=== PATIENT | male | born 1955 | race Caucasian/White ===

== ENCOUNTER → 2016-07-11 | Outpatient (CLI) | payer OTHER ==
--- NOTE | 2016-07-11 16:12 | US ---
Right Lower Extremity Ultrasound and Venous Duplex Doppler Study History: Pain. Comparison: None available. Technique: High frequency transducer was used for imaging and Doppler study of the veins of the lowe r extremity. Pulsed Doppler and color Doppler were utilized, along with various maneuvers to assess flow in the veins. Findings: The deep veins of the lower extremity are normally compressible between the groin and the upper calf and have normal Doppler waveforms within them. No venous thrombosis is identified. Impression: No evidence of deep vein thrombosis. Findings discussed with Antonio Theodore today at 1610 hours.
== END ==
LOC: FIMAGING 14:29
PROVIDERS: ATTEND Family Medicine
DX: M79.604 Pain in right leg (principal)

== ENCOUNTER → 2016-09-04 | Outpatient (CLI) | payer OTHER | LOC: FIMAGING 09:53 | PROVIDERS: ATTEND Physician Assistant | DX: M48.06 Spinal stenosis, lumbar region (principal) ==

== ENCOUNTER 2017-03-11 05:53 | Inpatient (IN) | payer OTHER ==
[2017-03-11] MEDS ORDERED: LIDOCAINE 1% 2 ML INJ ID PRN (05:59)
[2017-03-11] MEDS ORDERED: LR 1,000 ML IV ONE (05:59)
[2017-03-11] MEDS ORDERED: MIDAZOLAM 2 MG/2 ML VIAL IVP ONE (06:11)
--- NOTE | 2017-03-11 06:11 | PDANEPAE ---
ANE History of Present Illness 61 yo male for L2-5 laminectomies. ANE Past Medical History - Cardiovascular History Hx Hypertension: Yes Hx Arrhythmias: No Hx Chest Pain: No Hx Coronary Artery / Peripheral Vascular Disease: No Hx CHF / Valvular Disease: No Hx Palpitations: No - Pulmonary History Hx COPD: No Hx Asthma/Reactive Airway Disease: No Hx Recent Upper Respiratory Infection: No Hx Oxygen in Use at Home: No Hx Sleep Apnea: No Sleep Apnea Screening Result - Last Documented: Positive - Neurologic History Hx Cerebrovascular Accident: No Hx Seizures: No Hx Dementia: No Neurologic History Comment: legs go numb after walking short distances - Endocrine History Hx Diabetes: No Hypothyroid: Yes Obesity: no Endocrine History Comment: hypothyroid - Renal History Hx Renal Disorders: No - Liver History Hx Hepatic Disorders: No - Neurological & Psychiatric Hx Hx Neurological and Psychiatric Disorders: No Neurological / Psychiatric History Comment: insomnia on medication - Cancer History Hx Cancer: No - Congenital Disorder History Hx Congenital Disorders: No - GI History Hx Gastrointestinal Disorders: Yes Gastrointestinal History Comment: colon resection, constipation. gerd - Other Health History Other Health History: dry skin. wears glasses - Chronic Pain History Chronic Pain: Yes (01/22, chronic narcotics for pain management) - Surgical History Prior Surgeries: 2010 C 5,6,7 fused. 2013 repaired hernia. 2014 left distal bisep tendon ANE Review of Systems Review of Systems: No URI/fever x2 weeks. - Exercise capacity METS (RN): 3 METS - Systems Cardiac: Reports: no symptoms Respiratory: Reports: no symptoms Neurological: Reports: numbness (B legs after walking short distances. ) ANE Patient History - Allergies Allergies/Adverse Reactions: gabapentin [From Neurontin] Allergy (Verified 02/09/17 12:22) "makes me forgetful" tizanidine [From Zanaflex] Allergy (Verified 03/11/17 07:05) - Home Medications Home medications: home medication list seen and reviewed Home Medications: Allopurinol [Allopurinol 300 MG (RX)] 300 mg PO DAILY 02/11/17 [Last Taken 03/11 02:30] Aspirin [Aspirin 81mg (*)] 2 - 4 tab PO DAILY 02/11/17 [Last Taken 03/03/17] Bisacodyl [Bisacodyl (*)] 5 - 10 mg PO BID PRN 02/11/17 [Last Taken 03/10/17 21: 00] Cetirizine [ZyrTEC 10 mg (*)] 10 mg PO DAILY 02/11/17 [Last Taken 03/11/17 02:30 ] Cyclobenzaprine [Flexeril 10 MG (*)] 10 mg PO TID PRN 02/11/17 [Last Taken 03/11 02:30] Docusate Sodium 250 mg PO BID PRN 02/11/17 [Last Taken 03/10/17 18:00] Famotidine [Pepcid 20 MG (*)] 20 mg PO BID 02/11/17 [Last Taken 03/11/17 02:30] Herbals/Supplements -Info Only 1 ea PO DAILY 02/11/17 [Last Taken Unknown] LISINOPRIL/HYDROCHLOROTHIAZIDE [PRINZIDE 20-25 MG TABLET] 1 each PO BID [Last Taken 03/11/17 02:30] Levothyroxine [Synthroid 112 mcg (*)] 112 mcg PO DAILY06 02/11/17 [Last Taken 02:30] Multivitamins [Multivitamin (*)] 1 each PO DAILY 02/11/17 [Last Taken 03/04/17] Naproxen Sodium [Aleve 220 MG (*)] 1 - 2 each PO TID PRN 02/11/17 [Last Taken ] Nicotine [Nicoderm Cq 21 mg (*)] 21 mg TD DAILY 02/11/17 [Last Taken 03/11/17 05 :00] [place]-3 Fatty Acids [Fish Oil 1000 mg (*)] 2,000 mg PO DAILY 02/11/17 [Last Taken 03/04/17] Simethicone [Gas-X] 125 mg PO BID PRN 02/11/17 [Last Taken 03/11/17 02:30] Suvorexant [Belsomra] 20 mg PO HS PRN 02/11/17 [Last Taken 03/09/17] Tamsulosin HCl [Flomax 0.4 MG (*)] 0.8 mg PO DAILY 02/11/17 [Last Taken 22:30] oxyCODONE IR [Oxycodone Ir (*)] 15 mg PO Q4HRS PRN 02/11/17 [Last Taken 09/27/ 17 03:30] - NPO status NPO Status: no food or drink >8 hours - Anes Hx Anes Hx: no prior problems - Smoking Hx Smoking Status: Former smoker - Alcohol Use Alcohol Use: None - Family Anes Hx Family Anes Hx: neg - N/A Family Hx Anesthesia Complications: none ANE Labs/Vital Signs - Vital Signs Vital Signs: reviewed preoperatively; see RN documention for details Height: 175.26 cm Weight: 80.286 kg ANE Physical Exam - Airway Neck exam: decreased ROM (previous cervical fusion) Mallampati Score: Class 3 Mouth exam: normal dental/mouth exam - Pulmonary Pulmonary: other (coarse) - Cardiovascular Cardiovascular: tachycardia - ASA Status ASA Status: III ANE Anesthesia Plan Anesthesia Plan: general endotracheal anesthesia Lines/Monitors: arterial line
[2017-03-11] MEDS ORDERED: DEXMEDETOMIDINE HCL 400 MCG in NS 100 ML IV SCH (06:30)
[2017-03-11] MEDS ORDERED: ceFAZolin 2 GM/DEXTROSE 100 ML IV ONE (06:55)
[2017-03-11] MEDS ORDERED: CHLORHEXIDINE GLUC HIBICLENS 118 ML BTL TP ONE (06:57)
[2017-03-11] MEDS ORDERED: THROMBIN (BOVINE) 5,000 UNIT VIAL TP ONE (06:58)
[2017-03-11] MEDS ORDERED: BUPIVACAINE 0.25% 30 ML SDV ONE (06:58)
[2017-03-11] MEDS ORDERED: BACITRACIN 50,000 UNITS/10 ML SYR IRR ONE (06:59)
[2017-03-11] MEDS ORDERED: AVITENE POWDER 1 GM JAR TP ONE (06:59)
[2017-03-11] MEDS ORDERED: DIAZEPAM 10 MG/2 ML SYR ONE (07:14)
[2017-03-11] MEDS ORDERED: KETAMINE 100 MG/10 ML SYR ONE (07:14)
[2017-03-11] MEDS ORDERED: fentaNYL 100 MCG/2 ML INJ ONE (07:14)
[2017-03-11] MEDS ORDERED: PROPOFOL/EMULSION 500 MG/50 ML BOTTLE IV ONE ×2 (07:15→08:33)
[2017-03-11] MEDS ORDERED: LIDOCAINE 2% 5 ML SDV ONE (07:15)
[2017-03-11] MEDS ORDERED: DEXAMETHASONE 4 MG/ML VIAL ONE ×2 (07:15)
[2017-03-11] MEDS ORDERED: ROCURONIUM 50 MG/5 ML VIAL ONE (07:15)
[2017-03-11] MEDS ORDERED: PHENYLEPHRINE 10 MG/ML SDV ONE (07:38)
[2017-03-11] MEDS ORDERED: VASOPRESSIN 20 UNIT/ML VIAL ONE (08:25)
[2017-03-11] MEDS ORDERED: SURGIFLO MATRIX KIT WITH THROMBIN TP ONE (08:31)
[2017-03-11] MEDS ORDERED: epHEDrine SULFATE 10 MG/ML SYR ONE ×5 (08:40→09:34)
[2017-03-11] MEDS ORDERED: ALBUMIN 5% 250 ML BOTTLE IV ONE ×2 (08:59→09:25)
[2017-03-11 09:04] LABS: BASE EXCESS -5.2 mEq/L (-2.5-2.5); BICARBONATE 19 mEq/L (22-26); HEMOGLOBIN ABG 12.4 gm/dL (14.5-17.3); IONIZED CALCIUM 1.14 MMOL/L (1.12-1.30); MEASURED OXYGEN SATURATION 99 % (92-95); PCO2 34 mmHg (34-38); PO2 170 mmHg (65-75); SODIUM ABG 133 mEq/L (137-146); TCO2 20 mEq/L (23-27)
[2017-03-11] MEDS ORDERED: KETOROLAC 30 MG/1 ML SDV ONE (09:43)
[2017-03-11] MEDS ORDERED: ONDANSETRON DISINTEGRATING 4 MG TAB PO PRN (10:11)
[2017-03-11] MEDS ORDERED: ONDANSETRON 4 MG/2 ML VIAL IVP PRN ×2 (10:11→10:17)
[2017-03-11] MEDS ORDERED: POLYETHYLENE GLYCOL 3350 17 GM PKT PO PRN (10:11)
[2017-03-11] MEDS ORDERED: diphenhydrAMINE 25 MG CAP PO PRN (10:11)
[2017-03-11] MEDS ORDERED: MAGNESIUM HYDROXIDE 30 ML UDCUP PO PRN (10:11)
[2017-03-11] MEDS ORDERED: LACTULOSE 20 GM/30 ML UDCUP PO PRN (10:11)
[2017-03-11] MEDS ORDERED: BISACODYL 10 MG SUPP PR PRN (10:11)
[2017-03-11] MEDS ORDERED: NS 1,000 ML IV SCH (10:15)
[2017-03-11] MEDS ORDERED: Suvorexant [Belsomra] 20 MG PO PRN (10:17)
[2017-03-11] MEDS ORDERED: NALOXONE HCL 0.4 MG/ML INJ IVP PRN (10:17)
[2017-03-11] MEDS ORDERED: D5W LR 500 ML IV PRN (10:17)
[2017-03-11] MEDS ORDERED: OXYCODONE/APAP 5/325 TAB PO PRN (10:17)
[2017-03-11] MEDS ORDERED: NON-FORMULARY NEW DRUG (Simethicone [Gas-X] 125 MG) PO PRN (10:17)
[2017-03-11] MEDS ORDERED: ACETAMINOPHEN 500 MG TAB PO PRN (10:17)
[2017-03-11] MEDS ORDERED: PROMETHAZINE HCL 25 MG/ML INJ IVP PRN (10:17)
[2017-03-11] MEDS ORDERED: ALBUTEROL 3 ML DEYVIAL IH PRN (10:17)
[2017-03-11] MEDS ORDERED: NAPROXEN SODIUM 220 MG TAB PO PRN (10:17)
--- NOTE | 2017-03-11 10:22 | POSTANESTH ---
Post Anesthetic Evaluation Cardiovascular Status: Similar to Pre-Op Cond (BP now stable, similar to pre-op reading. Off of all pressors.) Respiratory Status: Normal, Stable Level of Consciousness/Mental Status: Can Participate in Eval, Mildly Sleepy, Arousable Pain Control: Adequate, Prn Tx Ordered Nausea/Vomiting Control: Adequate, Prn Tx Ordered Complications Possibly Related to Anesthesia: None Noted
--- NOTE | 2017-03-11 10:23 | PDHPUP ---
History & Physical Update H&P update statement: This history and physical update is based on an assessment of the patient which was completed after admission or registration (within 24 hours), but prior to the surgery/procedure. H&P update: H&P reviewed & patient examined, no change in patient's condition since H&P completed
--- NOTE | 2017-03-11 10:33 | NEUSURGPN ---
Assessment/Plan: S: Patient in PACU. Stable with expected postop incisional pain. O: NAD, VSS- Hypotensive 82/49 but has been baseline for patient since preop PERRL, EOMI CN II-XII grossly intact JOSHI X4 BLE 5/5= Sensation intact to lt touch Incision c/d/i- dermabond DENISE X 1 to full suction A: 61 yo male sp L2-L5 laminectomy for lumbar stenosis and neurogenic claudication -Admit to med/sug -Patient had issues with hypotension intraoperatively and postop- hold antihypertensive medications if low. Normal range has been 80s/50s. Most likely hypovolemia as oxygenation and heart rhythm stable -Advance diet as tolerated -DENISE X 1 -LSO brace to be ordered per Dr. Toney even though no hardware was placed as bone quality poor -Patient chronic opioid user- DIRECTOR GEOPHYSICAL LABORATORY ordered if needed and MS Contin added -PT/OT -DVT prophy: TEDs, SCDs, Lvoenox POD #1 -Patient discussed with Dr. Toney - Physician Discussed Patient with Dr.: Toney Neurosurgery Physical Exam - Vitals, I&O, Labs I and O 03/10/17 03/11/17 03/12/17 05:59 05:59 05:59 Weight 80.286 kg Vital Signs Temp Pulse Resp BP Pulse Ox 36 C 114 H 16 90/62 L 93 03/11/17 10:16 03/11/17 06:35 03/11/17 06:35 03/11/17 06:35 03/11/17 06:35 ICD10 Worksheet Patient Problems: Problems Problem Status Onset Lumbar stenosis Acute - ICD10 Problem Qualifiers (1) Lumbar stenosis
[2017-03-11] MEDS ORDERED: SIMETHICONE 80 MG TAB CHEW PO PRN (10:38)
[2017-03-11] MEDS ORDERED: DIAZEPAM 10 MG/2 ML SYR IVP PRN (10:39)
--- NOTE | 2017-03-11 10:48 | GOP ---
[f rep st] OPERATIVE REPORT DATE OF OPERATION: 03/11/2017 SURGEON: Lisandro Toney MD JUMPBASTING FACING BASTER: Malu Dent PA-C PREOPERATIVE DIAGNOSIS: Severe lumbar stenosis with neurogenic claudication. POSTOPERATIVE DIAGNOSIS: Severe lumbar stenosis with neurogenic claudication. PROCEDURE PERFORMED: 1. Complete laminectomies L2, L3, L4, and L5. 2. Medial facetectomies L2, L3, L4, and L5, for decompression of lateral recess and cauda equina. 3. Use of intraoperative neurophysiologic monitoring, including somatosensory-evoked potentials and free run EMG. FINDINGS: Successful lumbar decompression. SPECIMENS: None. ESTIMATED BLOOD LOSS: 100 cc. DESCRIPTION OF PROCEDURE: After informed consent was obtained from the patient, the patient was brou ght to the operating room, and a formal time-out was performed, identifying the patient by name, [facility] record number, and date of . Preoperative antibiotics were given, endotracheal tube was óscar harley, and general endotracheal anesthesia was smoothly induced. The patient was then turned into the prone position on the Chicho frame with the lumbar spine placed in flexion. The lumbar region was th en prepped and draped in the normal sterile fashion. The levels of the incision were localized using a lateral radiograph and a spinal needle. 10 cc of 0.25% Marcaine with epinephrine was infiltrated into the skin for hemostasis. The skin incision was made using a 10 blade, and the subcutaneous tiss ues were dissected using monopolar electrocautery. The fascia was opened in the midline, and the par aspinous muscles were taken down from the lateral surfaces of the spinous processes at L2, L3, L4, an d L5. A marker was placed under the upper-most lamina and lower-most lamina, and these were identifi ed as L2 and L4. The L5 lamina was then exposed just beneath the L4. Exposure was obtained out to t he medial facets. Once full exposure was obtained from L2 to L5, the spinous processes were removed using Leksell rongeurs. At L4 on the left, a pars defect was visualized, which had not been seen on the preoperative imaging, but this was clearly degenerative in nature. Careful inspection did not re veal any sign of motion at that level of the inferior facet. At this point, the high-speed drill was used to drill troughs laterally, leaving slightly more than half the pars intact at each level. The lamina was removed medially exposing the yellow ligament and epidural fat. At this point, Kerrison punches were used to remove the remainder of the lamina at L2, L3, L4, and L5, and then underbite the lateral recess at the facet joint. The entire yellow ligament was removed, first starting on the ri ght side and then moving toward the left side. There was extensive facet overgrowth, which was causi ng a large amount of lateral recess stenosis at each level, and these were carefully removed using Ke rrison punches. A dissector was then used to carefully palpate out into each foramen at L2-3, L3-4, L4-5, and L5-S1, and foraminotomies were performed using Kerrison punches at each level. At this poi nt, the bleeding in the lateral gutters was controlled using Surgicel and Gelfoam. A final look was taken in the lateral recess to be sure that the decompression was complete. A final lateral radiogra ph confirmed that we had decompressed from above the L2-3 disk space to below the L5-S1 disk space. At this point, the wound was copiously irrigated using bacitracin irrigation. Where the pars defect was visualized, the medial facet was drilled down to expose bleeding bone, and some of the morselized autograft, which was harvested from the lamina and spinous processes, was placed over the facet join ts at L3, L4, and L5, performing a non-instrumented fusion in this area, given that the unilateral le ft-sided pars defect was unknown prior to the surgery. At this point, a DENISE drain was placed in the s ubfascial space. The fascia was closed in the midline using interrupted 0 Vicryl's. The superficial fascia was closed using interrupted 0 Vicryl's, the deep dermis was closed using interrupted 2-0 Albert ryl's, and the skin was closed using Dermabond. Sterile dressings were placed. The patient was awak ened in the operating room and was transferred to the PACU in stable condition. There were no operat delroy complications. I was scrubbed and present for the entire procedure. BRIEF CLINICAL HISTORY: The patient is a 61-year-old man who presents with severe neurogenic claudic ation. MRI reveals severe stenosis due to facet hypertrophy and ligamentum flavum hypertrophy at L2- 3, L3-4, L4-5, and L5-S1. He has tried numerous conservative options but is still having significant pain and can barely walk. He presents today for elective surgery. FLUIDS AND URINE OUTPUT: Per the anesthesia record. COUNTS: All sponge and needle counts were correct at the end of the case. DRAIN: A subfascial DENISE. /[id number]/MODL
[2017-03-11 10:52] LABS: BASE EXCESS -6.1 mEq/L (-2.5-2.5); BICARBONATE 19 mEq/L (22-26); MEASURED OXYGEN SATURATION 99 % (92-95); TCO2 20 mEq/L (23-27)
[2017-03-11 10:57] LABS: PCO2 35 mmHg (34-38); PO2 126 mmHg (65-75)
[2017-03-11] MEDS ORDERED: oxyCODONE IR 5 MG TAB ONE (11:26)
[2017-03-11] MEDS ORDERED: oxyCODONE IR 5 MG TAB PO ONE (11:30)
[2017-03-11] MEDS: ACETAMINOPHEN 500 MG TAB PO SCH ×2 (13:11→21:10)
[2017-03-11] MEDS: ceFAZolin 2 GM/DEXTROSE 100 ML IV SCH ×2 (14:26→23:10)
[2017-03-11] MEDS: DIAZEPAM 5 MG TAB PO PRN ×2 (14:26→23:14)
[2017-03-11] MEDS: oxyCODONE IR 15 MG TAB PO PRN ×2 (17:52→23:07)
[2017-03-11] MEDS ORDERED: NON-FORMULARY NEW DRUG (Lisinopril/Hydrochlorothiazide [Prinzide 20-25 Mg Tablet] 1 EACH) PO SCH (21:00)
[2017-03-11] MEDS: morphINE SR 15 MG TAB PO SCH (21:10)
[2017-03-11] MEDS: LISINOPRIL/HCTZ 10/12.5 MG 1 EA TAB PO SCH (21:11)
[2017-03-11] MEDS: FAMOTIDINE 20 MG TAB PO SCH (21:11)
[2017-03-11] MEDS: SENNOSIDES/DOCUSATE SODIUM TAB PO SCH (21:11)
[2017-03-12] MEDS: oxyCODONE IR 15 MG TAB PO PRN ×3 (03:51→15:20)
[2017-03-12] MEDS: ACETAMINOPHEN 500 MG TAB PO SCH ×3 (05:16→20:57)
[2017-03-12] MEDS: DIAZEPAM 5 MG TAB PO PRN ×3 (05:17→17:54)
[2017-03-12] MEDS: LEVOTHYROXINE 112 MCG TAB PO SCH (05:17)
--- NOTE | 2017-03-12 08:36 | NEUSURGPN ---
Assessment/Plan: A: 61 yo male sp L2-L5 laminectomy for lumbar stenosis and neurogenic claudication -Admit to med/sug -Advance diet as tolerated -Continue DENISE X 1 -LSO brace when OOB per Dr. Toney even though no hardware was placed as bone quality poor -Patient chronic opioid user- SEARCH MARKETING SPECIALIST ordered if needed and MS Contin added. Will transition to PO meds today. -PT/OT -DVT prophy: TEDs, SCDs, Lovenox -Patient discussed with Dr. Toney Subjective: Anterior thigh tingling. Leg cramps prior to surgery have not returned since surgery. Objective: NAD A&Ox3 MAEx4 5/5 and equal in BUE and BLE. Incisional dressing c/d/i. DENISE drain serosanguineous - Physician Patient Seen by : Dawna Neurosurgery Physical Exam - Vitals, I&O, Labs I and O 03/11/17 03/12/17 03/13/17 05:59 05:59 05:59 Intake Total 3471 Output Total 670 Balance 2801 Weight 80.286 kg Intake: Oral (ml) 500 IV Intake (ml) 2000 IV Infused (ml) 971 Ns 1,000 ml @ 100 mls/hr 756 IV CONT MAGUI Rx#: [id number] ceFAZolin 2 GM/DEXTROSE 215 100 ml @ 200 mls/hr IV Q8H MAGUI Rx#:[id number] Output: Urine (ml) 300 Urinal 300 Estimated Blood Loss (ml) 100 DENISE Drain Output (ml) 270 #1 Left Posterior Back 270 Dejuan Rodriguez Other: Number of Voids Toilet 1 Bladder Scan Volume (ml) 136 Vital Signs Temp Pulse Resp BP Pulse Ox 37.1 C 99 16 110/70 93 03/12/17 07:54 03/12/17 07:54 03/12/17 07:54 03/12/17 07:54 03/12/17 07:54 ICD10 Worksheet Patient Problems: Problems Problem Status Onset Lumbar stenosis Acute
[2017-03-12] MEDS: FAMOTIDINE 20 MG TAB PO SCH ×2 (08:51→20:57)
[2017-03-12] MEDS: ALLOPURINOL 300 MG TAB PO SCH (08:51)
[2017-03-12] MEDS: CETIRIZINE 10 MG TAB PO SCH (08:51)
[2017-03-12] MEDS: SENNOSIDES/DOCUSATE SODIUM TAB PO SCH ×2 (08:52→20:59)
[2017-03-12] MEDS: TAMSULOSIN HCL 0.4 MG CAP PO SCH (08:52)
[2017-03-12] MEDS: LISINOPRIL/HCTZ 10/12.5 MG 1 EA TAB PO SCH ×2 (08:53→20:57)
[2017-03-12] MEDS: NICOTINE 21 MG/24 HR PATCH TD SCH (08:54)
[2017-03-12] MEDS: ENOXAPARIN 40 MG/0.4 ML SYR SC SCH (08:55)
[2017-03-12] MEDS: morphINE SR 15 MG TAB PO SCH ×2 (08:58→20:56)
[2017-03-12] MEDS: oxyCODONE IR 5 MG TAB PO PRN ×2 (12:59→20:54)
--- NOTE | 2017-03-12 15:17 | ASMTCMCOM ---
CM Note CM Note Notes: Ot clears pt for home, PT rec HHC and/or 24/hr sup. Pt will have supervision of gf, he wants to speak w gf before deciding if he wants HHC. HHC choice list left w pt, CM to follow. Date Signed: 03/12/2017 03:16 PM Electronically Signed By:TAYLOR Laird
[2017-03-12] MEDS: METHOCARBAMOL 750 MG TAB PO PRN (15:20)
[2017-03-12] MEDS: HYDROmorphONE/DILAUDID 1 MG/ML INJ IVP PRN ×2 (15:23→17:52)
[2017-03-13] MEDS: HYDROmorphONE/DILAUDID 1 MG/ML INJ IVP PRN ×3 (00:09→05:02)
[2017-03-13] MEDS: DIAZEPAM 5 MG TAB PO PRN ×3 (00:09→18:38)
[2017-03-13] MEDS: oxyCODONE IR 5 MG TAB PO PRN ×3 (00:48→15:36)
[2017-03-13] MEDS: METHOCARBAMOL 750 MG TAB PO PRN ×2 (03:07→13:34)
[2017-03-13] MEDS: ACETAMINOPHEN 500 MG TAB PO SCH ×3 (04:57→21:15)
[2017-03-13] MEDS: LEVOTHYROXINE 112 MCG TAB PO SCH (04:58)
--- NOTE | 2017-03-13 09:12 | NEUSURGPN ---
Assessment/Plan: A: 61 yo male sp L2-L5 laminectomy for lumbar stenosis and neurogenic claudication -Continue DENISE X 1, may d/c later today if drain continues to taper -LSO brace when OOB per Dr. Toney even though no hardware was placed as bone quality poor -Patient chronic opioid user- OUTSIDE PLANT CABLE ENGINEER ordered if needed and MS Contin added. Will transition to PO meds today. Toradol added for pain control -PT/OT -DVT prophy: TEDs, SCDs, Lovenox -Patient discussed with Dr. Toney -Please notify NS with any change in neuro/motor exam -Will work towards d/c home once pain under better control Subjective: low back and bilateral leg pain Objective: NAD A&Ox3 MAEx4. 5/5 and equal in BUE and BLE. Incision c/d/i - Physician Discussed Patient with : Dawna Neurosurgery Physical Exam - Vitals, I&O, Labs I and O 03/12/17 03/13/17 03/14/17 05:59 05:59 05:59 Intake Total 3471 800 250 Output Total 670 Balance 2801 800 250 Weight 80.286 kg Intake: Oral (ml) 500 800 250 IV Intake (ml) 2000 IV Infused (ml) 971 Ns 1,000 ml @ 100 mls/hr 756 IV CONT MAGUI Rx#: [id number] ceFAZolin 2 GM/DEXTROSE 215 100 ml @ 200 mls/hr IV Q8H MAGUI Rx#:[id number] Output: Urine (ml) 300 Urinal 300 Estimated Blood Loss (ml) 100 DENISE Drain Output (ml) 270 #1 Left Posterior Back 270 Dejuan Rodriguez Other: Number of Voids Toilet 1 Urinal 4 Bladder Scan Volume (ml) 136 Vital Signs Temp Pulse Resp BP Pulse Ox 36.8 C 98 16 133/66 H 93 03/13/17 08:00 03/13/17 08:00 03/13/17 08:00 03/13/17 08:00 03/13/17 08:00 ICD10 Worksheet Patient Problems: Problems Problem Status Onset Lumbar stenosis Acute
[2017-03-13] MEDS: LISINOPRIL/HCTZ 10/12.5 MG 1 EA TAB PO SCH ×2 (09:14→21:15)
[2017-03-13] MEDS: KETOROLAC 30 MG/1 ML SDV IVP PRN ×2 (09:22→18:40)
[2017-03-13] MEDS: FAMOTIDINE 20 MG TAB PO SCH ×2 (09:26→21:15)
[2017-03-13] MEDS: CETIRIZINE 10 MG TAB PO SCH (09:26)
[2017-03-13] MEDS: ALLOPURINOL 300 MG TAB PO SCH (09:26)
[2017-03-13] MEDS: SENNOSIDES/DOCUSATE SODIUM TAB PO SCH ×2 (09:27→21:15)
[2017-03-13] MEDS: TAMSULOSIN HCL 0.4 MG CAP PO SCH (09:27)
[2017-03-13] MEDS: NICOTINE 21 MG/24 HR PATCH TD SCH (09:28)
[2017-03-13] MEDS: ENOXAPARIN 40 MG/0.4 ML SYR SC SCH (09:29)
[2017-03-13] MEDS ORDERED: NS 1,000 ML IV SCH (09:30)
[2017-03-13] MEDS ORDERED: NS 1,000 ML IV ONE (09:30)
[2017-03-13] MEDS: morphINE SR 15 MG TAB PO SCH ×2 (09:35→21:15)
[2017-03-14] MEDS: DIAZEPAM 5 MG TAB PO PRN ×2 (00:20→13:18)
[2017-03-14] MEDS: oxyCODONE IR 5 MG TAB PO PRN ×3 (00:20→06:11)
[2017-03-14] MEDS: ACETAMINOPHEN 500 MG TAB PO SCH ×2 (04:52→13:18)
[2017-03-14] MEDS: METHOCARBAMOL 750 MG TAB PO PRN ×2 (04:52→14:14)
[2017-03-14] MEDS: LEVOTHYROXINE 112 MCG TAB PO SCH (04:52)
[2017-03-14 07:39] VITALS: O2SAT 89
[2017-03-14] MEDS: NICOTINE 21 MG/24 HR PATCH TD SCH (09:44)
[2017-03-14] MEDS: TAMSULOSIN HCL 0.4 MG CAP PO SCH (09:45)
[2017-03-14] MEDS: LISINOPRIL/HCTZ 10/12.5 MG 1 EA TAB PO SCH (09:45)
[2017-03-14] MEDS: SENNOSIDES/DOCUSATE SODIUM TAB PO SCH (09:45)
[2017-03-14] MEDS: morphINE SR 15 MG TAB PO SCH (09:45)
[2017-03-14] MEDS: FAMOTIDINE 20 MG TAB PO SCH (09:45)
[2017-03-14] MEDS: ALLOPURINOL 300 MG TAB PO SCH (09:45)
[2017-03-14] MEDS: CETIRIZINE 10 MG TAB PO SCH (09:45)
[2017-03-14] MEDS: ENOXAPARIN 40 MG/0.4 ML SYR SC SCH (09:46)
--- NOTE | 2017-03-14 10:28 | NEUSURGPN ---
Assessment/Plan: SA: 61 yo male sp L2-L5 laminectomy for lumbar stenosis and neurogenic claudication -Nuero: Doing well overall and pain well controlled on current regimen -LSO brace when OOB per Dr. Toney even though no hardware was placed as bone quality poor -Patient chronic opioid user- Going home on MS Contin, Valium, and Oxy IR -PT/OT -DVT prophy: TEDs, SCDs, Lovenox -Patient discussed with Dr. Toney -Please notify NS with any change in neuro/motor exam -DC home today Subjective: Doing well, pain in legs improved and back pain well controlled. Wants to go home. Objective: NAD A&Ox3 MAEx4. 5/5 and equal in BUE and BLE. Incision c/d/i - Physician Discussed Patient with : Dawna Neurosurgery Physical Exam - Vitals, I&O, Labs I and O 03/13/17 03/14/17 03/15/17 05:59 05:59 05:59 Intake Total 800 1250 Balance 800 1250 Intake: Oral (ml) 800 250 IV Infused (ml) 1000 Ns 1,000 ml @ 0 mls/hr IV 1000 ONCE ONE Rx#:[id number] Other: Number of Voids Toilet 1 Urinal 4 Vital Signs Temp Pulse Resp BP Pulse Ox 36.3 C 101 H 14 109/66 89 L 03/14/17 07:38 03/14/17 07:38 03/14/17 07:38 03/14/17 09:45 03/14/17 07:38 ICD10 Worksheet Patient Problems: Problems Problem Status Onset Lumbar stenosis Acute - ICD10 Problem Qualifiers (1) Lumbar stenosis
[2017-03-14] MEDS: oxyCODONE IR 15 MG TAB PO PRN (11:27)
--- NOTE | 2017-03-14 11:27 | ASDISCHSUM ---
Discharge Information Plan Status:Home with No Needs Medically Cleared to Leave: Discharge Date: D/C Disposition: ADT D/C Disposition:Home, Routine, Self-Care Projected Discharge Date:03/14/2017 12:00 AM Transportation at D/C: Discharge Delay Reason: Follow-Up Date:03/14/2017 12:00 AM Discharge Slot: Final Diagnosis: Placement Information Patient Contact Information Contact Name:TOM Relationship:Other Address:[address] [place] [address] [facility] [place] Alternate Phone: State/Zip Code:[place] [address] Email: Financial Information Financial Class:Medicare Advantage Plans Primary Plan Desc:[facility] ADVANTAGE PLANS Primary Plan Number:[id number] Secondary Plan Desc: Secondary Plan Number: Assessment Information [facility] CM Progress Note CM Note CM Note Notes: Ot clears pt for home, PT rec HHC and/or 24/hr sup. Pt will have supervision of gf, he wants to speak w gf before deciding if he wants HHC. [facility] choice list left w pt, CM to follow. Date Signed: 03/12/2017 03:16 PM Electronically Signed By:TAYLOR Laird [facility] CM Progress Note CM Note CM Note Notes: Met with pt to discuss having HC PT vs Outpt PT. Pt prefers to go to outpt PT. No other needs identified. Pt to DC today. Date Signed: 03/14/2017 11:24 AM Electronically Signed By:Lisa Gallardo LCSW Intervention Information
[2017-03-14 11:59] VITALS: BP 121/76; PULSE 100; RESP 16; TEMP 97.5
== END 2017-03-14 14:27 | disposition home or self-care (01) | DRG 517 ==
LOC: F3N 05:53
PROVIDERS: ADMIT Neurological Surgery; ATTEND Neurological Surgery
PROC: 01NB0ZZ Release Lumbar Nerve, Open Approach (ICD-10-PCS; principal; 2017-03-11 07:15)
DX: M48.06 Spinal stenosis, lumbar region (principal); I95.9 Hypotension, unspecified; F11.90 Opioid use, unspecified, uncomplicated; N40.0 Benign prostatic hyperplasia without lower urinary tract symptoms; M10.9 Gout, unspecified
CPT/HCPCS: 97116-GP; 97161-GP; 97166-GO; 97530-GO; 97535-GO; G8978-GP-CI; G8979-GP-CI; G8987-GO-CK; G8988-GO-CI; J0171; J0690; J1100; J1170; J1650; J1885; J2250; J2370; J2704; J3010; P9041